=== PATIENT | male | born 1985 | race Caucasian/White ===

== ENCOUNTER 2017-11-28 21:45 | Emergency (ER) | payer SELFPAY ==
[~2017-11-28] VITALS: Ht 182.9 cm; Wt 63.5 kg
[~2017-11-28 21:45] MED LIST: CLIN150 PO; HYDACE5 PO; IBUP200 PO; IBUP800 PO; NAPR500 PO; Norco 5-325 Ta1 EACH PO; PENVK500 PO; RXHYDACE PO; Veetids 500500 MG PO
== END 2017-11-29 01:56 | disposition left against medical advice (07) ==
LOC: ER 21:45
DX: Z53.21 Procedure and treatment not carried out due to patient leaving prior to being seen by health care provider (principal)